=== PATIENT | male | born 1975 | race Caucasian/White ===

== ENCOUNTER 2020-03-29 07:59 | Outpatient (CLI) | payer OTHER, SELFPAY ==
[2020-03-29 08:45] LABS: D Dimer 7.62 ug/mIFEU (0-0.59)
== END 2020-03-29 08:00 | disposition home or self-care (01) ==
PROVIDERS: PCP Family Medicine; Visit Provider Family Medicine
DX: R06.00 Dyspnea, unspecified (principal)
CPT/HCPCS: 85378

== ENCOUNTER 2020-03-29 12:14 | Outpatient (CLI) | payer OTHER, SELFPAY ==
--- NOTE | 2020-03-29 12:26 | CT_ITS ---
WS: [id number] CT CHEST ANGIOGRAPHY WITH REFORMATS HISTORY: DYSPNEA TECHNIQUE: Contiguous axial images are obtained through the chest during arterial injection of intrav enous contrast. Images are reconstructed to evaluate the pulmonary arteries. MIP imaging also reviewe d. All CT scans at [facility] use at least one of these dose optimization techniques: aut omated exposure control; mA and/or kV adjustment per patient size (includes targeted exams where dose is matched to clinical indication); or iterative reconstruction. CONTRAST: Omnipaque 350; 95 mL IV. DLP: 592.88 mGy.cm COMPARISON: None available. There is significant bilateral pulmonary emboli. Emboli begins within the distal main pulmonary arter ies and extending into the upper and lower lobe arterial systems. There is significant occlusive and nonocclusive thrombus branching into the lower lobe pulmonary arteries. Smaller embolic burden into t he upper lobe arteries and the RIGHT middle lobe. Pulmonary artery size is 3.6 cm which is mildly pro minent as compared to the aorta. Normal-sized thoracic aorta. No dissection or aneurysm is appreciate d. There are a few scattered pulmonary opacifications. Subsolid opacification at the RIGHT apex. There i s an additional subpleural based subsolid opacification in the posterior RIGHT upper lobe, image 22 o f series 3. Heart is top normal size. There is no significant RIGHT heart strain although the RIGHT ventricle and RIGHT atrium are slightly larger than expected. No thrombus in the LEFT atrial appendage. No pericar dial effusion. Visualized upper abdomen is negative on this early enhancement phase. Nodule adjacent to the spleen is probably a splenule. No adrenal mass. Mild increase in the thoracic kyphosis. CT/CT angio chest PE protcl [id number] IMPRESSION: 1. Significant bilateral pulmonary embolic burden as described above. 2. No RIGHT heart strain at this time. 3. Mild enlargement of the pulmonary artery. 4. RIGHT upper lobe subsolid opacifications. Recommend [address] follow -up. 5. No adenopathy. Notified Gold Alaniz MD at 03/29/2020 1:00 PM.
[2020-03-29] MEDS: iohexol 350 mg/mL 100 mL Btl IV (12:46)
== END 2020-03-29 12:15 | disposition home or self-care (01) ==
LOC: RAD 12:21
PROVIDERS: PCP Family Medicine; Visit Provider Family Medicine
DX: R06.02 Shortness of breath (principal); R06.00 Dyspnea, unspecified
CPT/HCPCS: 71275

== ENCOUNTER 2020-04-09 11:47 | Outpatient (CLI) | payer OTHER, SELFPAY ==
[2020-04-09 12:24] VITALS: BMI 31.4
--- NOTE | 2020-04-09 12:29 | SUR.PREOP ---
STRESS ORDER/ SCHEDULING STRESS ORDERED SCHEDULED TREADMILL STRESS ONLY AND IS ORDERED STRESS ECHO. VERIFIED WITH U/S AVAILABLITY AND SCHEDULING TO VERIFY PRE CERT FOR STRESS ECHO TODAY. AWAITING INSURANCE APPROVAL. PATIENT MADE AWARE. TEST ON HOLD AT THIS TIME.
--- NOTE | 2020-04-09 12:40 | ECG_ITS ---
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 Interpretive Statements NAME OF STUDY: TREADMILL STRESS ECHOCARDIOGRAM INDICATION: EXERTIONAL DYSPNEA PROCEDURE: The baseline electrocardiogram showed sinus bradycardia with a rate of [address]-T's. At the baseline, the patient's blood pressure was 123/87 mm Hg with a heart rate of 63. The patient exercised for 10 minutes and 2 seconds on a standard Bang protocol. Patient attained a maximum heart rate of 156 beats per minute(89% of the maximum predicted heart rate) with a blood pressure at the peak exercise of 144/71 mm Hg. The EKG at the peak exercise revealed nonspecific T wave changes. Patient did not have any chest pain or any significant arrhythmis with the exercise The echocardiographic pictures were taken at the baseline, immediate post exercise and during the recovery phase, at the standard views. During the recovery phase, there were no new changes. Blood pressure at the end of the recovery phase was 137/93 mm Hg with a heart rate of 74 per minute. CONCLUSION: 1. No significant EKG changes with the [treadmill exercise 2. No exercise-induced chest pain or cardiac arrhythmia 3. Good exercise tolerance, attained a maximum of 13.5 METs 4. Echocardiographic pictures were taken at the standard views; see separate report. Electronically Signed On 04-09-2020 18:04:59 [employer] by Mary Pagan M.D. [id number]
--- NOTE | 2020-04-09 13:15 | SUR.PREOP ---
STRESS TEST NOTE Scheduling called. Pre cert for SE received and valid per scheduling. Proceeding with SE.
--- NOTE | 2020-04-09 13:16 | USCV_ITS ---
Stress Echo OLLIE DHALIWAL Age: 44 Gender: M : 1975 Exam Date: 04/09/2020 13:09 Ordering Phys: Gold Alaniz MD Technologist: Haim Raya Exam Location: [facility] [place] Indication: Exertional Dyspnea Rhythm: Sinus Patient History: HX OF PE, CURRENT COAG USE Cardiac Medications: NONE Medications in past 24 hours: NONE Contrast: Stress Results Protocol: Bang Total dose(mL): Exercise Duration (min:sec): 09:47 METS: 13.5 Resting HR: 58 Resting BP: 123 / 87 Peak HR: 156 Peak BP: 157 / 93 Max Predicted HR: 174 90 % Max Predicted HR Target HR: 148 Double Product: [id number] Stress Summary: The patient's target heart rate was achieved The hemodynamic response to exercise was normal BP Response: Normal Reason for Termination: Test terminated after reaching target heart rate (85% max predicted) Cardiac Symptoms: Short of Breath ECG Analysis Resting ECG: Please see separate report Stress ECG: Please see separate report Arrhythmia: Please see separate report MEASUREMENTS (Male/Female) Normal Values FINDINGS The baseline echocardiogram revealed normal LV size and ejection fraction. Segmental wall motion analysis reveals no gross wall motion normalities. Aortic annulus was of normal size. With the peak exercise, there was good augmentation of all the segments with no exercise-induced wall motion of normalities. During the recovery phase, there was no new wall motion normalities. CONCLUSIONS Normal echocardiographic response to treadmill exercise. No significant coronary ischemia, based on the above finding Dr Mary Pagan MD [facility] (Electronically Signed) Final Date: 09 April 2020 17:15 S
[2020-04-09 14:08] VITALS: BP 123/64; PULSE 74
== END 2020-04-09 11:48 | disposition home or self-care (01) ==
PROVIDERS: PCP Family Medicine; Visit Provider Family Medicine
DX: R06.00 Dyspnea, unspecified (principal)
CPT/HCPCS: 93017; 93350

== ENCOUNTER 2020-04-18 11:56 | Outpatient (CLI) | payer OTHER, SELFPAY ==
--- NOTE | 2020-04-18 18:50 | ONC CON_ITS ---
Dr. Apodaca New Patient Note Patient: Keven Olvera Unit #: [id number]: 1975 Dicatated By: Joaquín Apodaca M.D.Date of Visit: Apr 18, 2020 Onc MED New Patient/Consult Referring Physician: Dr. CLAUDIA DIETRICH M.D. Chief Complaint: Pulmonary embolism. History of Present Illness: This is a 44 year-old man with bilateral pulmonary emboli. He has been in good general health. Sometime around July of this year he began having shortness of breath and increased heart rate in association with activity. He continued to have symptoms, though somewhat intermittently. On 03/28/[address] Dietrich to establish primary care, as he had recently began employment at [employer]. CT pulmonary angiogram on 03/29/2020 showed significant bilateral pulmonary emboli, getting within the distal main pulmonary arteries and extending into the upper and lower lobe arterial systems. There was significant occlusive and nonocclusive thrombus branching into the lower lobe pulmonary arteries. A few scattered pulmonary opacifications were noted. Also noted was a subsolid opacification at the right apex and an additional subpleural-based subsolid opacification in the posterior right upper lobe. A 3-month follow-up study was recommended. He was started on anticoagulation with apixaban. His further evaluation with Dr. Dietrich included a thrombophilia profile, which was unrevealing. The protein C activity was normal at 121%. Protein S antigen and protein S activity also were normal at 145% and 109% respectively. Antithrombin III activity was normal at 99%. Activated protein C resistance was normal at 4.8. The lupus anticoagulant screen was negative and the cardiolipin antibody and the beta-2 glycoprotein 1 antibody titers were normal. A prothrombin gene mutation study was requested but not performed, as the sample was deemed unsuitable for testing. He is feeling a lot better now. His energy has improved and is almost back to normal. Breathing is also back to normal now, and he has normal activity. ECOG score is 0. He has good appetite. He has no fever, night sweats, or hot flashes. He does not have cough, and he does not complain of chest pain. He has no GI or complaints. He has no significant joint or bone pain. He does not complain of headache or dizziness. He has no focal neurologic symptoms. 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 He had stopped them in July when his symptoms first started. He had no illness, injury, traveling, or other precipitating factors associated with the embolism. Past Medical History: His medical history, in addition to pulmonary embolism, includes androgen deficiency, history of childhood asthma, and history of NSAID-induced interstitial nephritis. Past Surgical History: His surgical/procedural history includes kidney biopsy, arthroscopic right knee surgery in 2016, and right elbow bursectomy in 2014. Medications: Eliquis 1 (5 mg) Tablet Oral b.i.d. Allergies: NSAIDs and Quinolones. Social History: Mr. Olvera is . He is a non-smoker. He has had just occasional alcohol use. Family History: Both parents are living and in good health, father at age 77 and mother at age 74. He thinks that both may have had DVTs associated with traveling. A 43-year-old sister has type 1 diabetes. Two children are in good health. Review Of Symptoms: Constitutional - His energy is a lot better and now almost back to normal. He has normal activity. Appetite is good and weight is stable. No fever, night sweats, or hot flashes. ECOG score is 0, Eyes - No change in vision, ENMT - No hearing loss or tinnitus. No sinus congestion/drainage. No mouth sores. No sore throat or difficulty swallowing, Hematologic/Lymphatic - He does have some bruising on the apixaban, Respiratory - His breathing is back to normal. No cough. No pleuritic pain or hemoptysis, Cardiovascular - No angina pain. No palpitations, Gastrointestinal - No nausea or vomiting. No heartburn or acid reflux. No diarrhea or constipation. No blood in the stool or black stools, Genitourinary (M) - No dysuria or hematuria. No urinary frequency. No urgency or incontinence, Musculoskeletal - He has some occasional, minor musculoskeletal pain, Integumentary - No skin rash or other skin changes, Neurologic - No headache or dizziness. No numbness or tingling. No other focal neurologic symptoms, Psychiatric - No anxiety or depression. No insomnia. Vital Signs: Performed on Apr 18, 2020 12:04: 0, 31.14 (HIGH), 2.31 sq.m, 73 in, 97 %, 53 /min (LOW), 17 /min, 141/81 mm(hg) (HIGH), 98.4 F, and 236 lbs (HIGH). Physical Examination: Constitutional - He appears to be in good general health, Eyes - Sclerae nonicteric. Conjunctivae clear, ENMT - No lesions noted in the oral cavity, Neck - No mass or thyromegaly, Hematologic/Lymphatic - No cervical, clavicular, or axillary adenopathy, Respiratory - Lungs are clear with good air movement bilaterally, Cardiovascular - Heart rhythm is regular. There is no murmur, gallop, or rub noted, Abdomen - Soft and non-tender. Liver and spleen are not enlarged. There is no abdominal mass or ascites noted and there is no inguinal adenopathy, Extremities - No edema. There is no calf swelling or tenderness. Pedal pulses are palpable bilaterally, Integumentary - No rashes. No suspicious skin lesions noted, Neurologic - No focal neurologic deficits noted. Impression: 1. Patient with a major episode of pulmonary emboli. It was diagnosed by CT pulmonary angiogram on 03/29/2020, but he had been symptomatic for at least 6 months. He is showing clinical improvement on anticoagulation with apixaban. 2. He had been on testosterone replacement therapy for androgen deficiency, which may have been a contributing factor to the thromboembolism. It was otherwise an unprovoked episode. 3. His thrombophilia profile was unrevealing. The prothrombin gene mutation study, though, was not completed. 4. He has a history of NSAID induced nephritis in 2009. 6. He has a history of childhood asthma. 7. His CT pulmonary angiogram also reported subsolid opacifications in the right lung apex and posterior right upper lobe, and a 3-month interval follow-up was recommended. Plan: It is not entirely certain whether this episode of thromboembolism was unprovoked or possibly caused by his testosterone replacement therapy. The issue is whether or not he may have short-term versus long-term anticoagulation. Given the fact that it was a major episode of pulmonary embolism, I would favor long-term anticoagulation, but it may be reasonable to transition to a maintenance dosage of apixaban after 6 months or a year of therapy. In the meantime, he should have a 3-month follow-up CT scan, and as a precaution, I would recommend extending that study to include the entire pancreas, just to make sure there is no evidence of underlying malignancy. He is recommended to continue his regular follow-up with Dr. Dietrich. I will plan to see him again only as needed. Signed By: Joaquín Apodaca M.D. <<Signature on File>>
== END 2020-04-18 11:57 | disposition home or self-care (01) ==
LOC: ONCMED 11:58
PROVIDERS: PCP Family Medicine; Visit Provider Internal Medicine Medical Oncology
DX: I26.99 Other pulmonary embolism without acute cor pulmonale (principal); Z79.01 Long term (current) use of anticoagulants; Z92.29 Personal history of other drug therapy
CPT/HCPCS: 99203

== ENCOUNTER 2020-07-11 11:47 | Outpatient (CLI) | payer OTHER, SELFPAY ==
--- NOTE | 2020-07-11 11:53 | CT_ITS ---
WS: [id number] CTA OF THE CHEST WITH PULMONARY EMBOLISM PROTOCOL TECHNIQUE: High-resolution contrast enhanced CTA of the chest with coronal and sagittal reformatted i mages with pulmonary embolism protocol. MIP images are also reviewed. CLINICAL INFORMATION: PULMONARY EMBOLUS COMPARISON: CT March 29, 2020 DLP: 634.[address] scans at [facility] use at least one of these dose optimization techniques: automat ed exposure control; mA and/or kV adjustment per patient size (includes targeted exams where dose is matched to clinical indication); or iterative reconstruction. FINDINGS: Proximal main pulmonary arteries are normal. Normal segmental and subsegmental pulmonary arteries. No filling defects. No evidence of pulmonary embolus. Previously described pulmonary filling defects rojas ve resolved. Both lungs are well aerated. No acute pulmonary infiltrates. No consolidation or pleural fluid. No me diastinal or hilar lymphadenopathy. No axillary lymphadenopathy. Previously described right upper lob e fibrotic appearing opacity is unchanged. Adrenal glands are normal. Hypertrophic changes thoracic spine with mild thoracic kyphosis. IMPRESSION: 1. No evidence of pulmonary embolus today. Normal bilateral pulmonary arteries. 2. Lungs are well aerated. No acute pulmonary infiltrates. 3. Right upper lobe fibrotic opacity is unchanged. 4. Previously described subpleural opacity in the posterior right upper lobe has resolved. 5. No other significant findings.
[2020-07-11] MEDS: iohexol 350 mg/mL 100 mL Btl IV (12:27)
== END 2020-07-11 11:48 | disposition home or self-care (01) ==
LOC: RAD 11:50
PROVIDERS: PCP Family Medicine; Visit Provider Family Medicine
DX: I26.99 Other pulmonary embolism without acute cor pulmonale (principal)
CPT/HCPCS: 71275

== ENCOUNTER → 2020-09-25 09:26 | Outpatient (BNVA) | payer OTHER, SELFPAY | PROVIDERS: PCP Family Medicine; Visit Provider Orthopaedic Surgery Hand Surgery | DX: Z01.812 Encounter for preprocedural laboratory examination (principal); Z20.822 Contact with and (suspected) exposure to COVID-19 | CPT/HCPCS: 87635 ==

== ENCOUNTER → 2022-07-06 14:31 | Outpatient (BNVA) | payer OTHER, SELFPAY | PROVIDERS: PCP Family Medicine; Visit Provider Physician Assistant | DX: M54.9 Dorsalgia, unspecified (principal); M54.2 Cervicalgia | CPT/HCPCS: 72050; 72072 ==

== ENCOUNTER 2022-07-07 06:00 | Outpatient (RCR) | payer OTHER, SELFPAY | END 2022-07-18 23:59 | disposition home or self-care (01) | LOC: SPT 06:00 | PROVIDERS: PCP Family Medicine; Visit Provider Physician Assistant | DX: M48.10 Ankylosing hyperostosis [Forestier], site unspecified (principal) | CPT/HCPCS: 97110; 97161 ==

== ENCOUNTER 2022-08-28 05:47 | Day surgery (SDC) | payer OTHER, SELFPAY ==
[2022-08-25 10:36] VITALS: BMI 32.3
[2022-08-28 05:56] VITALS: BP 136/89; PULSE 61; RESP 18; TEMP 35.9; O2SAT 96
[2022-08-28] MEDS: sodium chloride 0.9% 1,000 ML 30 ML IV (06:03)
--- NOTE | 2022-08-28 06:50 | ANES.PREANE2 ---
Pre-Anesthetic Assessment Height/Weight: Height 1.85 m Weight 111.13 kg Temp Pulse Resp BP Pulse Ox O2 Del Method 96.7 F L 61 18 136/89 96 08/28/22 05:56 08/28/22 05:56 08/28/22 05:56 08/28/22 05:56 08/28/22 05:56 08/28/22 05:56 Preop Diagnosis: Screening Operation Date: 08/28/22 07:00 Proposed Procedures p Colonoscopy(Not Applicable) - Kade Aguilar DO Was Beta Carine taken within 24 hours: N/A Was Clonidine taken within 24 hours: N/A Last intake: Intake Last Liquid Date 08/27/22 Last Liquid Time 21:00 Last Solid Date 08/26/22 Last Solid Time 19:30 Social Alcohol and No tobacco Exam alert, oriented x 3, clear to auscultation bilaterally and regular rate & rhythm Airway Submandibular: within normal limits Cervical ROM: within normal limits Mallampati: Class II Dentition: full History/ROS No significant history except as noted and No significant complaints Pulmonary None reported CV/HEM None reported None reported Hepatic None reported GI None reported Metabolic None reported Musc/skel None reported Neuropsych None reported Anesthetic Plan ASA status: 1 Anesthesia: MAC Risk of > 500 ml blood loss (7ml/kg in children): No Medications/Allergies Home Medications Medication Instructions Recorded Confirmed Last Taken Type losartan 50 mg tablet 50 mg PO DAILY 08/04/22 08/28/22 08/27/22 History Allergies Allergy/AdvReac Type Severity Reaction Status Date / Time NSAIDS (Non-Steroidal Allergy Unknown Unknown Verified 08/25/22 10:33 Anti-Inflamma Quinolones Allergy Unknown Unknown Verified 08/25/22 10:33 Current Medications Generic Name Dose Route Start Last Admin Trade Name Freq PRN Reason Stop Dose Admin Sodium Chloride 1,000 mls @ 30 mls/hr 08/28/22 06:00 08/28/22 06:03 Sodium Chloride 0.9% IV 08/29/22 05:59 30 mls/hr .Q24H JACKELIN Administration PFSH Anesthesia Medical History Hx of pulmonary embolus Social History Smoking and tobacco status: never smoked Data Anesthesia Cardiac Studies: Stress Echocardiogram 11/10/20
--- NOTE | 2022-08-28 06:54 | PM.HP ---
Providers/Chief Complaint Primary Care Provider: Gold Alaniz MD Chief Complaint: z12.11 History of Present Illness Keven Olvera is a 47 year old male here for his first screening colonoscopy. He denies any family history of colon cancer. Denies any abdominal pain, nausea, emesis, diarrhea, constipation, hematochezia and/or melena. Medications/Allergies Home Medications Medication Instructions Recorded Confirmed Last Taken Type losartan 50 mg tablet 50 mg PO DAILY 08/04/22 08/28/22 08/27/22 History Allergies Allergy/AdvReac Type Severity Reaction Status Date / Time NSAIDS (Non-Steroidal Allergy Unknown Unknown Verified 08/25/22 10:33 Anti-Inflamma Quinolones Allergy Unknown Unknown Verified 08/25/22 10:33 PFSH Acute PFSH: Medical History Hx of pulmonary embolus Social History Smoking and tobacco status: never smoked Vitals/I&O/Wt Last Vital Signs Temp 96.7 F L 08/28/22 05:56 Pulse 61 08/28/22 05:56 Resp 18 08/28/22 05:56 BP 136/89 08/28/22 05:56 Pulse Ox 96 08/28/22 05:56 O2 Del Method 08/28/22 05:56 A&P Assessment and plan (1) Colon cancer screening: Plan Colonoscopy The risks and benefits of the procedure, including bleeding, infection, intestinal perforation requiring surgery, missed lesion were explained to the patient. The patient is understanding of the risks and wishes to proceed. Attestations Medical Necessity Statement*: Home Coding Level of Care Code Acute Code for Chg Fwd Diagnoses Colon cancer screening Z12.11
[2022-08-28 07:20] VITALS: BP 105/74; PULSE 51; RESP 16; TEMP 36.1; O2SAT 96
[2022-08-28 07:31] VITALS: BP 118/79; PULSE 63; RESP 16; O2SAT 91
--- NOTE | 2022-08-28 11:32 | ANE.PACU2 ---
Inpatient post-anesthesia follow up: Airway intact: Yes Vital signs: Temperature 97 F Pulse Rate 63 Respiratory Rate 16 Blood Pressure 118/79 Pulse Oximetry 91 Oxygen Delivery Me thod Room Air Oxygen Flow Rate Fraction of Inspir ed Oxygen Hydration adequate: Yes Nausea and vomiting: No Pain level: 1 Mental status: Baseline
== END 2022-08-28 07:42 | disposition home or self-care (01) ==
PROVIDERS: PCP Family Medicine; Visit Provider Surgery
PROC: 0DJD8ZZ Inspection of Lower Intestinal Tract, Via Natural or Artificial Opening Endoscopic (ICD-10-PCS; CPT 45378; principal; 2022-08-28 07:00)
DX: Z12.11 Encounter for screening for malignant neoplasm of colon (principal)
CPT/HCPCS: 45378; J2704; J7030

== ENCOUNTER 2023-10-07 15:00 | Outpatient (CLI) | payer OTHER, SELFPAY ==
[2023-10-07 15:45] LABS: Hepatitis B Surface AB 44.6 (11.5-1000); Hepatitis B Surface Antigen Non-Reactive (Nonreactive); Hepatitis C Virus Antibody Non-Reactive (Nonreactive)
[2023-10-07 16:36] LABS: HIV 1 & 2 Antibody Non-Reactive (Non-Reactiv); HIV 1 & 2 Antigen Non-Reactive (Non-Reactiv)
== END 2023-10-07 15:01 | disposition home or self-care (01) ==
PROVIDERS: PCP Family Medicine; Visit Provider Family Medicine
DX: T14.8XXA Other injury of unspecified body region, initial encounter (principal); X58.XXXA Exposure to other specified factors, initial encounter
CPT/HCPCS: 86706; 86803; 87340; 87806

== ENCOUNTER 2025-05-02 08:00 | Outpatient (CLI) | payer OTHER, SELFPAY ==
--- NOTE | 2025-05-02 | XR_ITS ---
WS: [id number] Exam: XR chest 2V* [id number] Date/Time of Exam: 05/02/2025 11:02 AM Reason For Exam: Cough Comparison chest CT 03/29/2020. Lungs are clear and fully inflated. Normal cardiomediastinal silhouette. No pleural effusions. Spondylosis of the dorsal spine. XR/XR chest 2V* [id number] IMPRESSION: 1. No acute cardiopulmonary finding.
== END 2025-05-02 08:01 | disposition home or self-care (01) ==
LOC: RAD 05-04 13:17
PROVIDERS: PCP Family Medicine; Visit Provider Internal Medicine
DX: R05.9 Cough, unspecified (principal); R93.7 Abnormal findings on diagnostic imaging of other parts of musculoskeletal system
CPT/HCPCS: 71046

== ENCOUNTER → 2025-05-02 11:02 | Outpatient (BNVA) | payer OTHER, SELFPAY | PROVIDERS: PCP Family Medicine; Visit Provider Internal Medicine | DX: J44.9 Chronic obstructive pulmonary disease, unspecified (principal); J18.9 Pneumonia, unspecified organism; J45.909 Unspecified asthma, uncomplicated; R91.1 Solitary pulmonary nodule; Z86.711 Personal history of pulmonary embolism; R94.2 Abnormal results of pulmonary function studies | CPT/HCPCS: 71046 ==

== ENCOUNTER 2025-05-08 11:51 | Outpatient (CLI) | payer OTHER, SELFPAY ==
[2025-05-08 12:09] VITALS: PULSE 66; RESP 18; O2SAT 97
== END 2025-05-08 11:52 | disposition home or self-care (01) ==
LOC: RT 11:53
PROVIDERS: PCP Family Medicine; Visit Provider Internal Medicine
DX: J44.9 Chronic obstructive pulmonary disease, unspecified (principal)
CPT/HCPCS: 94060; 94729; J7613